=== PATIENT | female | born 1970 | race Caucasian/White ===

== ENCOUNTER 2020-10-13 06:23 | Day surgery (SDC) | payer OTHER, SELFPAY ==
[~2020-10-13] VITALS: Ht 170.2 cm; Wt 83.9 kg
[2020-10-13] MEDS ORDERED: LIDOCAINE 2% 100 MG/5 ML UJET TP ONE (08:52)
[2020-10-13] MEDS ORDERED: MIDAZOLAM 5 MG/5 ML VIAL ONE (08:52)
[2020-10-13] MEDS ORDERED: fentaNYL citrate 0.05 MG/ML VIAL ONE (08:52)
[2020-10-13] MEDS ORDERED: diphenhydrAMINE 50 MG/ML VIAL ONE (08:52)
[2020-10-13] MEDS ORDERED: MIDAZOLAM 2 MG/2 ML VIAL IVP ONE ×2 (09:25→12:50)
[2020-10-13] MEDS ORDERED: fentaNYL citrate 0.05 MG/ML VIAL IVP ONE ×2 (09:25→12:50)
== END 2020-10-13 10:35 | disposition home or self-care (01) ==
LOC: MDS 06:23 → MMU 06:24 → MDS 10:35
PROVIDERS: ATTEND Internal Medicine Gastroenterology
DX: K59.00 Constipation, unspecified (principal); K57.30 Diverticulosis of large intestine without perforation or abscess without bleeding; J43.9 Emphysema, unspecified; M19.90 Unspecified osteoarthritis, unspecified site; Z88.0 Allergy status to penicillin; Z79.899 Other long term (current) drug therapy; Z90.710 Acquired absence of both cervix and uterus; Z20.822 Contact with and (suspected) exposure to COVID-19
CPT/HCPCS: 45378; J2250; J3010; U0003; J1200